=== PATIENT | male | born 1955 | race Caucasian/White ===

== ENCOUNTER 2025-03-28 15:10 | Emergency (ER) | payer MEDICARE, SELFPAY ==
[2025-03-28 15:13] VITALS: BP 153/87
--- NOTE | 2025-03-28 16:02 | ED.GENMED ---
History of Present Illness
General
Chief Complaint: Skin Problem
Source: patient
Exam Limitations: none
Time Seen by Provider: 03/28/25 15:50
History of Present Illness
History of Present Illness:
70-year-old male with history of hypertension presents complaining of increasing redness swelling and pain to the left leg starting about 2 days ago. He notes a wound to the left milton that he sustained about a week ago on a ladder he also notes he
cut his toenail too short last week and it became swollen. No chest pain or shortness of breath. He is not a diabetic. No fevers chills or vomiting. No other complaints at this time
Past History
Past History
ED Past Medical History: HTN
Social History
Personal:
Living: with family
Employment: Employed
Phy Exam
Physical Exam
Physical Exam:
General: Well-appearing male no acute respiratory distress
HEENT: Normocephalic atraumatic
Heart: Regular rate and rhythm
Lungs: Clear no wheeze
Skin: Erythema and induration noted to the left lower leg. Is slightly tender to the touch without fluctuance. There is no lymphangitic streaking or drainage. There is a wound over the anterior milton with mild surrounding erythema but most of the
erythema the leg is posteriorly.
Course
Orders/Labs/Results
Orders:
Orders
03/28/25 16:01
Venous Doppler Lwr Ext Left [US Periph Venous LOWER Ext LT] Urgent
Comment:
Reason For Exam: swelling, pain
03/28/25 19:12
Cephalexin Monohydrate [Keflex] 500 mg PO NOW STA
Vital Signs
Initial and Last Documented VS:
Initial Vital Signs
Temp Pulse Resp BP Pulse Ox
97.9 F 86 18 153/87 97
03/28/25 15:13 03/28/25 15:13 03/28/25 15:13 03/28/25 15:13 03/28/25 15:13
Last Documented Vital Signs
Temp Pulse Resp BP Pulse Ox
97.9 F 90 16 145/78 98
03/28/25 15:13 03/28/25 17:28 03/28/25 17:28 03/28/25 17:28 03/28/25 17:28
MDM/Problems Addressed
Differential Diagnosis Includes:
Swelling redness and discomfort left leg. Consider cellulitis versus DVT. No sign of abscess. Will order ultrasound of leg to evaluate for DVT.
*Pulse Oximetry
SaO2: 97
Oxygen Mode of Delivery: Room air
Patient hypoxic: no
*Critical Care Note
Total Time (30-74mins, 75-104mins- exclusive of procedures): Not Applicable
Update Note
Update Note:
Ultrasound left leg negative for DVT. I suspect cellulitis. Will start Keflex. Dose given here. Will advise follow-up with family doctor or return here for worsening symptoms
ED Attending Note
-
Portions of this chart may have been created with voice recognition software.� Occasional wrong word or��sound alike� substitutions may have occurred due to the inherent limitations of voice recognition software.
Discharge Plan
Departure
Patient Disposition: Home (Routine Discharge)
Date of Disposition: 03/28/25
Time of Disposition: 19:13
Patient with high blood pressure during this ER visit?: No
Discharge Problem:
Cellulitis
Instructions: Cellulitis (Skin Infection), Adult (DC)
Prescriptions:
New
cephalexin 500 mg capsule
500 mg PO Q6H 7 Days Qty: 28 0RF
No Action
losartan-hydrochlorothiazide 100-12.5 mg Tablet
1 tab PO DAILY
psyllium Packet
1 packet PO HS
mupirocin 2 % ointment
1 applic topical BID Qty: 1 0RF
mupirocin 2 % Ointment
1 applic TOPICAL BID
Patient Comments:
patient has been applying bid to b/l nares since 04/30/22
aspirin 325 mg Tablet
325 mg PO DAILY Qty: 30 0RF
docusate sodium 100 mg Capsule
100 mg PO BID Qty: 30 0RF
pregabalin 75 mg Capsule
75 mg PO BID Qty: 60 0RF
meloxicam 15 mg Tablet
15 mg PO DAILY Qty: 30 0RF
tramadol 50 mg Tablet
50 mg PO Q6HPRN PRN (Reason: pain) Qty: 30 0RF
Referrals:
Tiara Zepeda MD [Family Provider, Family Practice]
Activity Restrictions/Additional Instructions:
Use antibiotics as directed. Elevate leg for swelling. Use warm compresses to the area. Return here for increasing redness swelling pain fever or vomiting. Follow-up with family doctor otherwise
Interventions
Interventions:
*Risk Screen - Suicide Last Done: 03/28/25 15:13
*General Assessment Last Done: 03/28/25 15:37
*Neglect/Abuse Screening Last Done: 03/28/25 15:13
*ED- Fall Risk Assessment Last Done: 03/28/25 15:37
*ED COVID-19 Vaccine History Last Done: 03/28/25 15:37
ED-Skin Assessment Last Done: 03/28/25 15:42
Discharge Date and Time
Print Language: GREEK
[2025-03-28 17:28] VITALS: BP 145/78
[2025-03-28] MEDS: KEFLEX 500 MG PO (19:19)
== END 2025-03-28 19:21 | disposition home or self-care (01) ==
LOC: EMR 15:10
PROVIDERS: EMERGENCY PHYSICIAN Emergency Medicine; FAMILY PHYSICIAN Family Medicine
DX: L03.116 Cellulitis of left lower limb (principal)
CPT/HCPCS: 99284; 93971

== ENCOUNTER → 2025-05-25 06:39 | Outpatient (REF) | payer MEDICARE, OTHER, SELFPAY | LOC: PAVMRI 06:39 | PROVIDERS: ATTENDING PHYSICIAN Physician Assistant Surgical; FAMILY PHYSICIAN Family Medicine | DX: M19.012 Primary osteoarthritis, left shoulder (principal) | CPT/HCPCS: 73221 ==

== ENCOUNTER → 2025-06-10 08:12 | Outpatient (REF) | payer MEDICARE, OTHER, SELFPAY | LOC: HWRAD 08:12 | PROVIDERS: ATTENDING PHYSICIAN Physician Assistant Surgical; FAMILY PHYSICIAN Family Medicine | DX: M75.102 Unspecified rotator cuff tear or rupture of left shoulder, not specified as traumatic (principal); M19.012 Primary osteoarthritis, left shoulder | CPT/HCPCS: 73200 ==